=== PATIENT | male | born 2000 | race Caucasian/White ===

== ENCOUNTER → 2023-12-03 | Outpatient (CLI) | payer BC, SELFPAY ==
[2023-12-05 15:08] LABS: H. PYLORI STOOL AG Negative (Negative)
== END | disposition home or self-care (01) ==
LOC: LABSPEC 15:35
PROVIDERS: Referring Provider Internal Medicine Gastroenterology; Visit Provider Internal Medicine Gastroenterology
DX: K29.70 Gastritis, unspecified, without bleeding (principal)
CPT/HCPCS: 87338